=== PATIENT | male | born 1980 | race Two or more races ===

== ENCOUNTER 2020-04-14 15:12 | Emergency (ER) | payer MEDICAID ==
[~2020-04-14] VITALS: Ht 172.7 cm; Wt 77.0 kg
[2020-04-14] MEDS ORDERED: IBUPROFEN 600MG TABLET PO ONE (18:00)
[2020-04-14 19:13] VITALS: BP 121/82
== END 2020-04-14 19:14 | disposition home or self-care (01) ==
LOC: ER 15:12
DX: M79.605 Pain in left leg (principal); R03.0 Elevated blood-pressure reading, without diagnosis of hypertension; R21 Rash and other nonspecific skin eruption
CPT/HCPCS: 73590; 99283